=== PATIENT | female | born 1990 | race Asian ===

== ENCOUNTER 2022-04-12 08:59 | Outpatient (REF) | payer OTHER, SELFPAY ==
[2022-04-12 11:41] LABS: Basophils Percent Auto 0.6 % (0-2); Eosinophils Absolute Auto 0.1 X10*3/uL (0.0-0.4); Eosinophils Percent Auto 2.1 % (0-4); Hematocrit 35.8 % (37.0-47.0); Hemoglobin 11.6 g/dl (12.0-16.0); Imm Gran Abs Auto 0.02 X10*3/uL (0.00-0.03); Imm Gran Pct Auto 0.4 % (0.0-0.4); Lymphocytes Absolute Auto 2.1 X10*3/uL (1.2-4.9); Lymphocytes Percent Auto 40.3 % (20-40); MANUAL DIFF FLAG NO; Mean Corpuscular HGB Conc 32.4 g/dl (31.0-35.0); Mean Corpuscular Volume 83.3 fL (80.0-98.0); Mean Platelet Volume 10.5 fL (9.4-12.3); Monocytes Absolute Auto 0.6 X10*3/uL (0.1-1.2); Monocytes Percent Auto 10.7 % (2-11); Neutrophils Absolute Auto 2.4 x10*3/uL (2.0-8.3); Neutrophils Percent Auto 45.9 % (45-73); Platelet Count 342 X10*3/uL (160-400); Red Cell Distribution Width 14.6 % (11.0-16.0); White Blood Count 5.2 X10*3/uL (4.8-10.8)
[2022-04-12 12:02] LABS: Appearance Urine Clear; Color Urine Yellow; Glucose Urine UA Negative (Negative); Leukocyte Esterase Urine Negative (Negative); Nitrite Urine Negative (Negative); PH 6.5 (5.0-9.0); Urine Blood Negative (Negative); Urine Ketones Negative (Negative); Urine Protein Negative (Neg-Trace)
[2022-04-12 12:26] LABS: HBS Num1 1.75 mIU/mL (0-7.99); HBc Num1 0.32 S/CO (0.00-0.79); HBsAGNum1 0.18 S/CO (0.00-0.99); HIV AB/AG Nonreactive (Nonreactive); Hepatitis B Core Antibody Nonreactive (Nonreactive); Hepatitis B Surface Antigen Negative (Negative); ~HepC Num1 0.07 S/CO (0.00-0.79); ~Hepatitis B Surface Antibody NONREACTIVE (Nonreactive); ~Hepatitis C Antibody Nonreactive (Nonreactive)
[2022-04-12 12:27] LABS: TSH reflex Free T4 0.46 uIU/mL (0.32-4.0)
[2022-04-12 12:32] LABS: Alanine Aminotransferase 15 U/L (0-31); Albumin Level 4.5 g/dL (3.5-5.0); Alkaline Phosphatase 57 U/L (39-117); Anion Gap 13 (12-20); Aspartate Amino Transferase 22 U/L (5-31); Bilirubin Total 0.7 mg/dL (0.0-1.0); Blood Urea Nitrogen 20 mg/dL (9-16); Calcium 9.5 mg/dL (8.4-10.2); Carbon Dioxide 27 mmol/L (22-29); Chloride 102 mmol/L (96-108); Cholesterol 162 mg/dL; Estimated Glomerular Filt Rate > 60; Glucose Fasting 85 mg/dL (60-99); HDL Cholesterol 65 mg/dL; LDL Cholesterol Calculated 91 mg/dl; Potassium 4.2 mmol/L (3.3-5.1); Sodium 138 mmol/L (135-145); Total Protein 7.5 g/dL (6.5-8.0); Triglycerides 32 mg/dL
[2022-04-13 05:18] LABS: Syphilis Screen Nonreactive (Nonreactive)
== END 2022-04-12 09:00 | disposition home or self-care (01) ==
LOC: HO.WFDLDS 08:59
PROVIDERS: Visit Provider Family Medicine
DX: Z00.00 Encounter for general adult medical examination without abnormal findings (principal); Z11.3 Encounter for screening for infections with a predominantly sexual mode of transmission
CPT/HCPCS: 36415; 80053; 80061; 81003; 84443; 85025; 86704; 86706; 86780; 86803; 87340; 87389

== ENCOUNTER 2022-05-28 08:37 | Outpatient (REF) | payer OTHER, SELFPAY ==
--- NOTE | ~2022-05-28 | XR_ITS ---
EXAMINATION: XR KNEE AP STANDING, BILATERAL XR KNEE, LEFT CLINICAL INFORMATION: Left knee pain. COMPARISON: None TECHNIQUE: Single standing view of both knees with 2 additional views left knee. FINDINGS: The knees appear unremarkable aside from the presence of a possible small left knee joint effusion. Some minimal deformity of the proximal fibula could be due to a remote fracture. XR/XR knee LT 2V IMPRESSION: Question of small left knee joint effusion.
--- NOTE | ~2022-05-28 | XR_ITS ---
EXAMINATION: XR KNEE AP STANDING, BILATERAL XR KNEE, LEFT CLINICAL INFORMATION: Left knee pain. COMPARISON: None TECHNIQUE: Single standing view of both knees with 2 additional views left knee. FINDINGS: The knees appear unremarkable aside from the presence of a possible small left knee joint effusion. Some minimal deformity of the proximal fibula could be due to a remote fracture. XR/XR knee standing BI IMPRESSION: Question of small left knee joint effusion.
== END 2022-05-28 08:38 | disposition home or self-care (01) ==
LOC: HO.HOSX 08:37
PROVIDERS: Visit Provider Physician Assistant
DX: M25.561 Pain in right knee (principal); M25.562 Pain in left knee
CPT/HCPCS: 73560; 73565

== ENCOUNTER 2022-05-31 10:24 | Outpatient (REF) | payer OTHER, SELFPAY ==
[2022-05-31 14:55] LABS: CT PCR NOT DETECTED (Not Detect.); NG PCR NOT DETECTED (Not Detect.)
[2022-06-01 10:08] LABS: BV Int Neg Control Negative (Negative); BV Int Pos Control Positive (Positive)
[2022-06-08 20:12] LABS: HPV 16 RNA NOT DETECTED (NOT DETECTED); HPV mRNA E6/E7 rflx Detected (Not Detected)
== END 2022-05-31 10:25 | disposition home or self-care (01) ==
LOC: HO.LNP 10:24
PROVIDERS: Visit Provider Advanced Practice Midwife
DX: Z01.419 Encounter for gynecological examination (general) (routine) without abnormal findings (principal); N92.6 Irregular menstruation, unspecified
CPT/HCPCS: 87480; 87491; 87510; 87591; 87624; 87625; 87660; 88142

== ENCOUNTER 2022-06-19 13:38 | Outpatient (REF) | payer OTHER, SELFPAY ==
--- NOTE | ~2022-06-19 | US_ITS ---
EXAMINATION: US PELVIS TRANSVAGINAL CLINICAL INFORMATION: Irregular menses COMPARISON: None. TECHNIQUE: Transcutaneous and transvaginal pelvic ultrasound. Transvaginal scanning was performed after voiding to better evaluate the endometrium and adnexa. FINDINGS: The uterus measures 6.6 x 3.6 x 4.4 cm. The uterus is anteverted. No suspicious abnormalities region of the cervix. The uterine contour is smooth. The endometrium measures 0.6 cm. No focal abnormalities within the myometrium. The right ovary measures approximately 4 x 1.6 x 3.7 cm. The calculated right ovarian volume is approximately 12.4 mL. No suspicious adnexal findings. Multiple follicles present. The left ovary measures 3.8 x 2.4 x 3.2 cm. The calculated left ovarian volume is approximately 15.4 mL. No suspicious left adnexal findings. No significant free pelvic fluid. US/US pelvic and transvaginal IMPRESSION: No significant pelvic abnormality appreciated.
[2022-06-19 16:49] LABS: HCG Quantitative < 2 mIU/mL
[2022-06-20 07:19] LABS: DHEA Sulfate 301 mcg/dL (19-237); Prolactin 8.7 ng/mL
== END 2022-06-19 13:39 | disposition home or self-care (01) ==
LOC: HO.HMGCX 13:38
PROVIDERS: PCP Family Medicine; Visit Provider Advanced Practice Midwife
DX: N92.6 Irregular menstruation, unspecified (principal); M25.362 Other instability, left knee
CPT/HCPCS: 36415; 76830; 76856; 82627; 83498; 84146; 84702

== ENCOUNTER 2022-07-03 11:45 | Outpatient (REF) | payer OTHER, SELFPAY ==
[2022-07-11 18:09] LABS: Testosterone, Free 7.7 pg/mL (0.1-6.4); Testosterone, Total 67 ng/dL (2-45)
== END 2022-07-03 11:46 | disposition home or self-care (01) ==
LOC: HO.LAB 11:45
PROVIDERS: PCP Family Medicine; Visit Provider Advanced Practice Midwife
DX: N92.6 Irregular menstruation, unspecified (principal); R79.89 Other specified abnormal findings of blood chemistry; Z71.2 Person consulting for explanation of examination or test findings; Z30.09 Encounter for other general counseling and advice on contraception
CPT/HCPCS: 36415; 84402; 84403

== ENCOUNTER 2022-07-05 11:31 | Outpatient (REF) | payer OTHER, SELFPAY | END 2022-07-05 11:32 | disposition home or self-care (01) | LOC: HO.10HDL 11:31 | PROVIDERS: Visit Provider Otolaryngology | DX: J30.89 Other allergic rhinitis (principal) | CPT/HCPCS: 36415; 82785; 86003 ==

== ENCOUNTER 2022-07-11 08:00 | Outpatient (RCR) | payer OTHER, SELFPAY ==
--- NOTE | 2022-06-20 09:31 | MHC.PT.EP ---
[facility] [place] Office [place] Office [place] Office [address] [phone] F: [phone] F: [phone] F: [phone] F: [phone] Physical Therapy Plan of Care Date of Evaluation: Date of Surgery: Diagnosis: PATELLAR INSTABILITY Assessment: ARIELLE IS A 32 YO FEMALE WHO PRESENTS WITH DIAGNOSIS OF PATELLAR INSTABILITY. SHE HAS H/O 2 DISLOCATIONS AND CONTINUES TO REPORT SENSATION OF INSTABILITY. UPON EXAM IMPAIRMENTS INCLUDE DECREASED HIP STRENGTH, ALTERED GAIT AND STABILITY, INCREASED DISCOMFORT. SHE DEMONSTRATES DECREASED ACTIVATION OF VMO AND GLUTE MED AND WELL HIP IR STRENGTH DEFICITS. FUNCTIONAL LIMITATIONS INCLUDE DECREASED ABILITY TO PERFORM HOMEMAKING TASKS, DECREASED ABILITY TO PARTICIPATE IN RECREATIONAL AND COMMUNITY ACTIVITIES. Frequency and Duration: The patient will be seen 2 X WEEK FOR 4 WEEKS Short Term Goals: INITIATE HEP AND PROMOTE SELF MANAGEMENT OF SYMPTOMS Senior Living Goals: TO DEMONSTRATE FULL KNEE ROM, EQUAL JESÚS TO DEMONSTRATE FULL LE STRENGTH, EQUAL JESÚS TO ASCEND AND DESCEND STAIRS WITH RECIPROCAL GAIT WITHOUT PAIN GREATER THAN 2/10 TO AMBULATE AD OTILIO ON LEVEL AND UNEVEN SURFACES FOR FITNESS WITHOUT PAIN GREATER THAN 2/10 TO PERFORM FULL FUNCTIONAL SQUAT WITHOUT SUBSTITUTION Treatment Plan: Modalities to reduce pain, spasms and effusion. Manual therapy to restore motion and function. Therapeutic exercise to improve strength and flexibility. Neuromuscular re-education for posture and balance. Therapeutic activities to return to functional activities of daily living. Electronically signed by: TIGRE ESTRELLA PT, DPT Please sign and return to therapist. Thank you for your referral.
--- NOTE | 2022-08-06 09:48 | MHC.PT.DC ---
[facility] [place] [facility] [place] Office [place] Office [address] Isabela Child [address] [phone] F: [phone] F: [phone] F: [phone] F: [phone] Physical Therapy Discharge Report Diagnosis: PATELLAR INSTABILITY Date of Surgery: Date of Evaluation: 06/20/22 Date of Discharge: 08/06/22 Treatments to Date: 7 Cancellations to Date: 1 No Shows to Date: 0 Discharge Status: Discharge Summary: At last attended visit, Pt continued to progress well with dynamic exercises, some discomfort lateral L knee with side stepping w/GTB but able to complete no instability or clicking noted. At times knee valgus noted with RB activities as pt has tendency to compensate balance with knee flex. She requested to cancel her last appointment due to illness and stated she would contact her office if needed for more visits. As we have not herd from her, we are D/Cing at this time. Electronically signed by: Yessenia Rendon PT, DPT Please sign and return to therapist. Thank you for your referral.
== END 2022-08-06 09:47 | disposition home or self-care (01) ==
LOC: HO.PT 08:00
PROVIDERS: PCP Family Medicine; Visit Provider Physician Assistant
DX: M25.362 Other instability, left knee (principal)
CPT/HCPCS: 97110; 97140; 97161; 97530

== ENCOUNTER → 2022-07-27 13:37 | Outpatient (BNVA) | payer OTHER, SELFPAY | PROVIDERS: PCP Family Medicine; Visit Provider Physician Assistant | DX: M25.362 Other instability, left knee (principal) ==

== ENCOUNTER → 2022-10-17 15:54 | Outpatient (BNVA) | payer OTHER, SELFPAY | PROVIDERS: PCP Family Medicine; Visit Provider Internal Medicine Endocrinology, Diabetes & Metabolism | DX: Z13.89 Encounter for screening for other disorder (principal) ==

== ENCOUNTER 2022-11-19 14:33 | Outpatient (REF) | payer OTHER, SELFPAY ==
[2022-11-19 15:47] LABS: Hematocrit 37.2 % (37.0-47.0); Hemoglobin 12.1 g/dl (12.0-16.0); Mean Corpuscular HGB Conc 32.5 g/dl (31.0-35.0); Mean Corpuscular Hemoglobin 27.6 pg (27.0-33.0); Mean Corpuscular Volume 84.9 fL (80.0-98.0); Platelet Count 329 X10*3/uL (160-400); Red Blood Count 4.38 X10*6/uL (4.20-5.50); White Blood Count 8.8 X10*3/uL (4.8-10.8)
== END 2022-11-19 14:34 | disposition home or self-care (01) ==
LOC: HO.LAB 14:33
PROVIDERS: PCP Family Medicine; Visit Provider Advanced Practice Midwife
DX: N92.6 Irregular menstruation, unspecified (principal)
CPT/HCPCS: 36415; 85027

== ENCOUNTER → 2022-11-21 11:30 | Outpatient (BNVA) | payer OTHER, SELFPAY | PROVIDERS: PCP Family Medicine; Visit Provider Advanced Practice Midwife ==

== ENCOUNTER → 2022-11-29 11:07 | Outpatient (BNVA) | payer OTHER, SELFPAY | PROVIDERS: PCP Family Medicine; Visit Provider Advanced Practice Midwife ==

== ENCOUNTER → 2022-12-03 15:13 | Outpatient (BNVA) | payer OTHER, SELFPAY | PROVIDERS: PCP Family Medicine; Visit Provider Advanced Practice Midwife | DX: N92.6 Irregular menstruation, unspecified (principal); Z30.42 Encounter for surveillance of injectable contraceptive | CPT/HCPCS: 96372 ==

== ENCOUNTER 2023-06-17 09:27 | Outpatient (REF) | payer OTHER, SELFPAY ==
[2023-06-17 11:11] LABS: MANUAL DIFF FLAG NO
[2023-06-17 11:20] LABS: Appearance Urine Clear; Color Urine Straw; Glucose Urine UA Negative (Negative); Leukocyte Esterase Urine Negative (Negative); Nitrite Urine Negative (Negative); PH 6.5 (5.0-9.0); Specific Gravity - Urine <= 1.005 (1.005-1.025); Urine Blood Negative (Negative); Urine Ketones Negative (Negative); Urine Protein Negative (Neg-Trace)
[2023-06-17 11:46] LABS: Basophils Percent Auto 0.6 % (0-2); Eosinophils Absolute Auto 0.3 X10*3/uL (0.0-0.4); Eosinophils Percent Auto 4.5 % (0-4); Hematocrit 34.9 % (37.0-47.0); Hemoglobin 11.5 g/dl (12.0-16.0); Imm Gran Abs Auto 0.01 X10*3/uL (0.00-0.03); Imm Gran Pct Auto 0.1 % (0.0-0.4); Lymphocytes Absolute Auto 2.3 X10*3/uL (1.2-4.9); Lymphocytes Percent Auto 33.1 % (20-40); Mean Corpuscular Hemoglobin 28.8 pg (27.0-33.0); Mean Corpuscular Volume 87.5 fL (80.0-98.0); Mean Platelet Volume 10.3 fL (9.4-12.3); Monocytes Absolute Auto 0.7 X10*3/uL (0.1-1.2); Monocytes Percent Auto 10.6 % (2-11); Neutrophils Absolute Auto 3.5 x10*3/uL (2.0-8.3); Neutrophils Percent Auto 51.1 % (45-73); Platelet Count 281 X10*3/uL (160-400); Red Blood Count 3.99 X10*6/uL (4.20-5.50); Red Cell Distribution Width 14.2 % (11.0-16.0); White Blood Count 6.9 X10*3/uL (4.8-10.8)
[2023-06-17 12:09] LABS: Alanine Aminotransferase 18 U/L (0-31); Albumin Level 3.9 g/dL (3.5-5.0); Alkaline Phosphatase 58 U/L (39-117); Anion Gap 9 (12-20); Aspartate Amino Transferase 23 U/L (5-31); Bilirubin Total 0.7 mg/dL (0.0-1.0); Blood Urea Nitrogen 9 mg/dL (9-16); Calcium 9.1 mg/dL (8.4-10.2); Carbon Dioxide 27 mmol/L (22-29); Chloride 108 mmol/L (96-108); Cholesterol 147 mg/dL (<200); Estimated Glomerular Filt Rate > 60; Glucose Fasting 91 mg/dL (60-99); HDL Cholesterol 65 mg/dL (>40); Iron 71 mcg/dL (30-160); LDL Cholesterol Calculated 72 mg/dL (<100); Percent Iron Saturation 22 % (15-50); Potassium 3.9 mmol/L (3.3-5.1); Sodium 140 mmol/L (135-145); Total Iron Binding Capacity 325 mcg/dL (228-428); Total Protein 7.1 g/dL (6.5-8.0); Triglycerides 53 mg/dL (<150); Unsaturated Iron Binding 254 ug/dL
[2023-06-17 12:12] LABS: TSH reflex Free T4 0.47 uIU/mL (0.32-4.0)
== END 2023-06-17 09:28 | disposition home or self-care (01) ==
LOC: HO.WFDLDS 09:27
PROVIDERS: Visit Provider Family Medicine
DX: Z00.00 Encounter for general adult medical examination without abnormal findings (principal); D64.9 Anemia, unspecified
CPT/HCPCS: 36415; 80053; 80061; 81003; 83540; 84443; 85025

== ENCOUNTER 2023-08-15 08:52 | Outpatient (AMB) | payer OTHER, SELFPAY ==
[2023-08-15 09:03] VITALS: BP 112/66; PULSE 99; TEMP 36.6; O2SAT 98; BMI 26.7
--- NOTE | 2023-08-15 09:03 | MHC.PC.OV ---
Vital Signs 08/15/23 09:03 Height 5 ft 3 in Weight 151 lb BMI 26.7 BP 112/66 Blood Pressure Location Lt brachial Position Sitting Pulse 99 Pulse Source Pulse Oximeter Temp 98 F Temp Source Oral Pulse Oximetry (%) 98 Oxygen Delivery Method Room Air Intake Visit Reasons: CPE with f/u labs and health maint. see comments Intake Note: Patient is here for her physical, had fever, diarrhea, vomiting. sore throat that resolved mostly, bloody mucous which is better now. She is here for a physica today. Allergies cat dander Allergy (Verified 08/15/23 09:07) Unknown dog dander Allergy (Verified 08/15/23 09:07) Unknown dust Allergy (Uncoded 08/15/23 09:07) Unknown tur[place] and ca[place] islander plantain Allergy (Uncoded 08/15/23 09:07) Unknown lambs quarter Allergy (Uncoded 08/15/23 09:07) Unknown Molds Allergy (Uncoded 08/15/23 09:07) Unknown pigweed Allergy (Uncoded 08/15/23 09:07) Unknown tree Allergy (Uncoded 08/15/23 09:07) Unknown Tobacco use date assessed: 08/15/23 Dental Screening Dental Screen Date: 08/15/23 Did you have a dental visit in the last 12 months?: No Did you have a dental problem in the last 6 months where you did not have access to dental care?: No Was dental information given to patient?: Yes HPI CPE with f/u labs and health maint. see comments HPI Details 33 y/o female presents for a CPE with f/u labs and health maintenance. Labs were drawn 06/17/23. Reviewed labs with pt. Mild anemia. Triglycerides 53. TC 147. LDL 72. HDL 65. Pt reports she had recently gotten a possible viral illness. Symptoms started about 6 days ago on Saturday. She states she had tested positive for Covid at home. [facility] Medical History PCOS (polycystic ovarian syndrome) Vertigo Migraine with aura Hx of abnormal cervical Pap smear Irregular periods Surgical History No history of previous surgery Family History Father Heart attack Social History Household Members: None Housing: Apartment Alcohol intake: current Alcohol intake frequency: holidays/special occasions only Patient Tobacco Use Status: Never used Tobacco e-Cigarette/Vaping Use: Never Used Second Hand Smoke Exposure: No service: No Current occupational status: employed Current occupation: financial compliance officer, right hand dominante Sexual orientation: Straight/Heterosexual Gender identity: Female Cognitive needs: No Hearing needs: No Vision needs: No Questionnaire PHQ-9 Over the last 2 weeks, how often have you been bothered by any of the following problems? 1. Little interest or pleasure in doing things: not at all 2. Feeling down, depressed, or hopeless: not at all 3. Trouble falling or staying asleep, or sleeping too much: several days 4. Feeling tired or having little energy: several days 5. Poor appetite or overeating: not at all 6. Feeling bad about yourself - or that you are a failure or have let yourself or your family down: not at all 7. Trouble concentrating on things, such as reading the newspaper or watching television: not at all 8. Moving or speaking so slowly that other people could have noticed. Or the opposite - being so fidgety or restless that you have been moving around a lot more than usual: not at all 9. Thoughts that you would be better off or of hurting yourself in some way: not at all Total score: 2 Depression Screening Interpretation: Negative Depression Screening Done: Yes Source: Developed by Drs. Andrew Peng, Maria Esther Murrell, Michael Sen and colleagues, with an educational joseluis from [employer]. Thrive Questionnaire Date Thrive assessed: 08/15/23 I am a: Patient What is your living situation today?: I have a steady place to live Within the past 12 months, did the food you bought not last and you didn't have the money to get more?: Never true Within the past 12 months, did you worry whether your food would run out before you got money to buy more?: Never true Do you have trouble paying for medicines?: No Do you have trouble getting transportation to medical appointments?: No Do you have trouble paying your heating and electricity bill?: No Do you have trouble taking care of your child, family member or friend?: No Do you have trouble with day-to-day activities such as bathing, preparing meals, shopping, managing finances, etc.?: No Are you currently unemployed and looking for a job?: No Are you interested in more education?: No THRIVE Score: 0 AUDIT C Alcohol Use Questionnaire (AUDIT-C) 1. How often do you have a drink containing alcohol?: Monthly or less 2. How many drinks containing alcohol do you have on a typical day when you are drinking?: 1 or 2 3. How often do you have six or more drinks on one occasion?: Never Total Score: 1 ISIDORO-7 AMB Questionnaire ISIDORO-7 Date ISIDORO - 7 assessed: 08/15/23 Feeling nervous, anxious, or on edge: 0 = Not at all Not being able to stop or control worryin = Not at all Worrying too much about different things: 0 = Not at all Trouble relaxin = Several days Being so restless that it is hard to sit still: 0 = Not at all Becoming easily annoyed or irritable: 0 = Not at all Feeling afraid as if something awful might happen: 0 = Not at all Total ISIDORO-7 score (0-4 normal; 5-9 mild; 10-14 moderate; 15-21 severe): 1 Source: Developed by Drs. Andrew Peng, Maria Esther Murrell, Michael Sen and colleagues, with an educational joseluis from [employer]. Review of Systems Const Denies chills, Denies fatigue, Denies fever(s), Denies headache(s) and Denies weakness Eyes Denies change in vision ENT Denies dizziness and Denies headache(s) Card Denies chest pain, Denies lightheadedness, Denies dyspnea and Denies other (Palpitations) Resp Denies cough, Denies dyspnea, Denies wheezing and Denies other ( shortness of breath) GI Denies abdominal pain, Denies melena, Denies hematochezia, Denies change in bowel habits, Denies dyspepsia and Denies nausea Denies hematuria and Denies dysuria Musc Denies numbness and Denies tingling Skin/Breast Denies rash, Denies unusual bruising and Denies wounds Neuro Denies dizziness, Denies headache(s), Denies numbness, Denies Sensory deficit (Neuro), Denies tingling, Denies paresthesias and Denies weakness Psych Denies anxiety and Denies depression Endo Denies fatigue Caio/Lymph Denies easy bleeding and Denies easy bruising Aller/Immun Denies wheezing Physical exam (Primary Care) Vital Signs: Last Vital Signs Temp 98 F 08/15/23 09:03 Pulse 99 08/15/23 09:03 BP 112/66 08/15/23 09:03 Pulse Ox 98 08/15/23 09:03 Oxygen Delivery Method Room Air 08/15/23 09:03 BMI result Body Mass Index 26.7 Tobacco/Smoking Status: Tobacco use Status Tobacco use date assessed 08/15/23 08/15/23 09:12 Patient Tobacco Use Status Never used Tobacco 08/15/23 09:12 e-Cigarette/Vaping Use Never Used 08/15/23 09:12 PHQ-9: PHQ-9 Score PHQ-9: Total score 2 08/15/23 09:21 Depression Screening Interpretation: Negative Thrive Assessment: Date of Thrive Assessment Date Thrive assessed 08/15/23 08/15/23 09:21 Const General: no acute distress and well developed Nutritional Appearance: well nourished Orientation/consciousness: patient oriented x3 HENMT Head: Yes normocephalic and Yes atraumatic Ears: hearing grossly normal bilaterally and TM's normal bilaterally General nose exam: Normal external nose present and Normal nares present Mouth: Normal oral and palatal mucosa present and moist mucous membranes Teeth and gingiva: dentition normal Throat: Yes posterior oropharynx normal Eyes General: appearance normal, both eyes and all related structures Pupils: Equal, round and reactive pupils present EOM: EOMs intact bilaterally Neck Neck: Yes normal visual inspection, Yes no lymphadenopathy and Yes trachea midline Thyroid: Thyroid normal Carotids: no bruits Lymphatic: no lymphadenopathy noted Chest Chest palpation & inspection: normal inspection of the chest Resp Effort & Inspection: normal respiratory effort Auscultation: clear to auscultation bilaterally Cardio Rate: regular rate Rhythm: regular rhythm Heart sounds: S1 normal heart sound present, S2 normal heart sound present, no gallops, no murmurs and no rubs Bruits: no abdominal aortic bruits and no carotid bruits GI Palpation (GI): No Abdominal aortic bruit present, Soft to palpation, nontender, No hepatosplenomegaly present and No Rebound tenderness present Auscultation: normal bowel sounds General: Yes no CVA tenderness Back/Spine/Pelvis Back: no CVA tenderness Cervical Spine: cervical ROM normal and No Cervical spine tenderness Thoracic/Lumbar Spine: thoraco-lumbar ROM normal, No pain with thoraco-lumbar ROM, No thoracic spinal tenderness and No lumbar spinal tenderness Skin Lesions: no lesions Rashes: no rashes Trauma: no lacerations or abrasions Wounds: no wounds Nails: normal Neuro General: patient oriented x3 and gait normal Cranial nerves: Yes Equal, round and reactive pupils present Cognition (Neuro): normal cognition Gait exam (Neuro): Normal gait present Motor exam (neuro): 5/5 motor strength present throughout Sensory Exam: No Sensory deficit (Neuro) Deep tendon reflexes (DTR's): Right patellar reflex intensity grade: 2+ and Left patellar reflex intensity grade: 2+ Extrem General: Yes normal to inspection and No edema Psych Appearance: grossly normal Affect: normal affect Attitude: cooperative Thought process: Normal thought process present Assessment and Plan Assessment & Plan (1) Adult general medical exam: Code(s): Z00.00 - Encounter for general adult medical examination without abnormal findings Plan: 33-year-old?female?presents?for?complete?physical?exam Mildly?ill?after?likely?COVID?infection - she?had?a?positive?COVID?test.??Sending?a?confirmatory?test?at?her?request. Encouraged?healthy?diet?with?active?lifestyle?and?plenty?of?exercise (2) Mild anemia: Code(s): D64.9 - Anemia, unspecified Plan: Patient?has?PCOS?and?irregular?menses Only?mild?anemia?and?her?iron?studies?were?within?normal?range. Encouraged?good?sources?of?dietary?iron.??She?can?use?an?OTC?iron?supplement?after?her?menses. (3) Viral illness: Code(s): B34.9 - Viral infection, unspecified Plan: As?above,?sent?nasal?swab?for?COVID/flu/RSV?testing. She?had?a?positive?home?COVID?test?so?likely?positive?for?COVID Lungs?clear?with?only?mild?coarse?quality?but?no?evidence?of?pneumonia. Encouraged?good?hydration?and?rest.??Will?give?her?the?rest?of?the?week?off. (4) HPV (human papilloma virus) anogenital infection: Code(s): A63.0 - Anogenital (venereal) warts Plan: As?above,?advised?patient?to?follow-up?with?cartography/mapping technician?regarding?HPV?positive?testing She?understand (5) Migraine: Code(s): G43.909 - Migraine, unspecified, not intractable, without status migrainosus Plan: Patient?notes?that she?has?an?astigmatism?and?has?had?some?visual?changes.??She?notes?that?this?seems?to?be?impacting?frequency?of?headaches. Referred?to?ophthalmology (6) Screening for cervical cancer: Code(s): Z12.4 - Encounter for screening for malignant neoplasm of cervix Plan: Pap?smear?in?May?2021?was?negative?for?intraepithelial?lesions,?however?was?positive?for?HPV. Advised?patient?to?follow-up?with?a?cartography/mapping technician. Orders: Orders SARS-CoV2/FLU/RSV Today R09.89 - Other specified symptoms and signs involving the circulatory and respiratory systems Referrals Ophthalmology Referral G43.909 - Migraine, unspecified, not intractable, without status migrainosus, H52.209 - Unspecified astigmatism, unspecified eye, H53.9 - Unspecified visual disturbance Coding Level of Care Code Est Pt Level 3 (35100) Est Pt Prev Care 18-39y(65807) Diagnoses Adult general medical exam Z00.00 Mild anemia D64.9 Viral illness B34.9 HPV (human papilloma virus) anogenital infection A63.0 Migraine G43.909 Screening for cervical cancer Z12.4
== END 2023-08-15 10:06 | disposition home or self-care (01) ==
PROVIDERS: Visit Provider Family Medicine
DX: Z00.00 Encounter for general adult medical examination without abnormal findings (principal); D64.9 Anemia, unspecified; A63.0 Anogenital (venereal) warts; G43.909 Migraine, unspecified, not intractable, without status migrainosus; B34.9 Viral infection, unspecified; Z12.4 Encounter for screening for malignant neoplasm of cervix
CPT/HCPCS: 99395

== ENCOUNTER 2023-08-15 09:26 | Outpatient (REF) | payer OTHER, SELFPAY ==
[2023-08-15 13:52] LABS: Influenza A PCR NEGATIVE (Negative); Influenza B PCR NEGATIVE (Negative); Resp Syncy Virus RNA Qual PCR NEGATIVE (Negative); SARS COV2 PCR INHOUSE POSITIVE (Negative)
== END 2023-08-15 09:27 | disposition home or self-care (01) ==
LOC: HO.LAB 09:26
PROVIDERS: Visit Provider Family Medicine
DX: Z11.52 Encounter for screening for COVID-19 (principal); Z20.822 Contact with and (suspected) exposure to COVID-19; R09.89 Other specified symptoms and signs involving the circulatory and respiratory systems
CPT/HCPCS: 0241U